=== PATIENT | female | born 2000 | race Caucasian/White ===

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

== ENCOUNTER 2021-03-04 00:19 | Outpatient (CLI) | payer OTHER ==
[~2021-03-04 00:19] MED LIST: COLACE 100MG C100 MG PO; LORTAB 5-325 M1 EACH PO; PRENATAL TABLE1 EAC1 PO
== END 2021-03-04 02:25 | disposition home or self-care (01) ==
LOC: GENOP 00:19
DX: O99.891 Other specified diseases and conditions complicating pregnancy (principal); R10.30 Lower abdominal pain, unspecified; Z87.891 Personal history of nicotine dependence; Z88.6 Allergy status to analgesic agent; Z79.899 Other long term (current) drug therapy; Z3A.29 29 weeks gestation of pregnancy
CPT/HCPCS: 81001; G0463

== ENCOUNTER 2021-05-11 04:51 | Inpatient (IN) | payer OTHER ==
[2021-05-11 05:31] LABS: HEMOGLOBIN 11.9 gm/dl (12.3-15.3); RED BLOOD COUNT 3.78 M/UL (4.00-5.10); WHITE BLOOD COUNT 11.5 K/UL (4.5-11.0)
[2021-05-12 07:32] LABS: HEMOGLOBIN 10.7 gm/dl (12.3-15.3)
[2021-05-12] MEDS ORDERED: DOCUSATE SODIU100 MG PO (09:11)
== END 2021-05-12 15:31 | disposition home or self-care (01) | DRG 807 ==
LOC: GENOP 04:51 → OB 05:06
PROVIDERS: ADMIT Obstetrics & Gynecology
PROC: 10E0XZZ Delivery of Products of Conception, External Approach (ICD-10-PCS; principal; 2021-05-11)
PROC: 10907ZC Drainage of Amniotic Fluid, Therapeutic from Products of Conception, Via Natural or Artificial Opening (ICD-10-PCS; 2021-05-11)
PROC: 4A1HXCZ Monitoring of Products of Conception, Cardiac Rate, External Approach (ICD-10-PCS; 2021-05-11)
DX: O62.9 Abnormality of forces of labor, unspecified (principal); Z37.0 Single live birth; Z3A.38 38 weeks gestation of pregnancy; Z20.822 Contact with and (suspected) exposure to COVID-19
CPT/HCPCS: 36415; 82800; 85014; 85018; 85025; 85461; 86850; 86900; 86901; J2590; J2790; U0002; U0003

== ENCOUNTER 2021-11-12 21:58 | Emergency (ER) | payer OTHER ==
[~2021-11-12 21:58] MED LIST changes: +DOCUSATE SODIU100 MG PO
== END 2021-11-12 23:10 | disposition left against medical advice (07) ==
LOC: ER1 21:58
DX: Z53.21 Procedure and treatment not carried out due to patient leaving prior to being seen by health care provider (principal)